=== PATIENT | male | born 1950 | race Caucasian/White ===

== ENCOUNTER → 2017-01-02 | Outpatient (CLI) | payer OTHER ==
[~2017-01-02] MED LIST: ASPI81TA28 PO; CALC500C3 PO; CEPH500C2 PO; INSDGIPEN SQ; LEVO75TA5 PO; LOSA50TA6 PO; METF-384 PO; METO100T14 PO; OMEP40CA41 PO; PEDI-19 PO; REPA1TAB42 PO; VIT B12 INJECTION INJ; [UNRECOGNIZED DRUG - OTHER] OPR
== END ==
LOC: C.LAB 22:23
DX: Z02.83 Encounter for blood-alcohol and blood-drug test (principal)

== ENCOUNTER 2017-03-13 22:40 | Emergency (ER) | payer OTHER ==
[~2017-03-13] VITALS: Ht 180.3 cm; Wt 93.5 kg
[2017-03-13 22:40] VITALS: TEMP 36.8; Ht 180.3 cm; Wt 93.5 kg
[2017-03-13] MEDS ORDERED: LIDO/EPINEPHRINE/SOD BICARB 20 ML VIAL INFIL ONE (22:47)
--- NOTE | 2017-03-13 23:05 | EMERGENCY ROOM VISIT NOTE ---
ED Visit Note First contact with patient: 22:43 I have personally evaluated this patient examined her and reviewed the pertinent labs and data. I have discussed the case with Faustina Vega, the physician appeals assistant and agree with the plan. Please refer to the PA note. This patient suffered a mechanical fall he has a large laceration to his left anterior arita there is no significant active bleeding he has bounding distal pulses my exam and has normal motor and sensation. The wound is relatively superficial but will require suturing given a large area. The patient says he is up-to-date on his tetanus booster. We will cover him with antibiotics and he should rest and elevate and try to stay off.
[2017-03-13] MEDS ORDERED: CEPHALEXIN 500MG HOME PACK 1 EA BTL PO ONE (23:45)
[2017-03-13] MEDS ORDERED: CEPH500C2 PO (23:53)
[2017-03-14 00:01] VITALS: BP 130/83; PULSE 69; O2SAT 97
[2017-03-14] MEDS ORDERED: OMEP40CA41 PO (00:10)
[2017-03-14] MEDS ORDERED: LEVO75TA5 PO (00:12)
[2017-03-14] MEDS ORDERED: METF-384 PO (00:12)
[2017-03-14] MEDS ORDERED: REPA1TAB42 PO (00:13)
[2017-03-14] MEDS ORDERED: METO100T14 PO (00:14)
[2017-03-14] MEDS ORDERED: LOSA50TA6 PO (00:15)
[2017-03-14] MEDS ORDERED: INSDGIPEN SQ (00:17)
[2017-03-14] MEDS ORDERED: CALC500C3 PO (00:18)
[2017-03-14] MEDS ORDERED: [UNRECOGNIZED DRUG - OTHER] OPR (00:20)
[2017-03-14] MEDS ORDERED: PEDI-19 PO (00:21)
[2017-03-14] MEDS ORDERED: VIT B12 INJECTION INJ (00:23)
[2017-03-14] MEDS ORDERED: ASPI81TA28 PO (00:23)
--- NOTE | 2017-03-14 03:33 | EMERGENCY ROOM VISIT NOTE ---
ED Visit Note First contact with patient: 22:43 CHIEF COMPLAINT: Left lower leg laceration HISTORY OF PRESENT ILLNESS: This 67-year-old patient presents to the emergency department with family after cutting the left lower leg when he had mechanical fall today. The bleeding has not stopped. Denies weakness or numbness of the extremity. patient has full range of motion of the extremity The patient rates the pain as mild and 2/10. The patient denies any other injuries. The patient' s tetanus shot is up to date. Patient denies any other injuries. He denies head injury, neck pain, back pain or any other medical complaints. REVIEW OF SYSTEMS: A 6 system review of systems was completed with positives and pertinent negatives listed in the HPI. ALLERGIES: Penicillin MEDICATIONS: Reviewed PMH: Paroxysmal A. fib not on anticoagulation, reviewed SOCIAL HISTORY: Occasional alcohol PHYSICAL EXAM: Vital Signs: Reviewed Nurse's notes, vital signs stable. GENERAL : Pleasant male, in no acute distress, well developed, well nourished. SKIN: There is a 12 cm long laceration on the left anterior arita. The edges gape apart with traction. There is no foreign material in the wound and it looks clean. There is bleeding. No deep structures such as tendons, bones, or significant blood vessels are seen in the base of the wound. Extension and flexion of the extremity is full and strong. Full range of motion of the extremity. Capillary refill less than 2 seconds. Normal sensation to light and sharp touch. EMERGENCY DEPARTMENT COURSE: I examined the patient. Using sterile technique the wound was cleansed with Betadine. 10 ml of 1% buffered lidocaine with epinephrine was used to anesthetize the patient. The area was sterilely draped. Once the patient was anesthetized, the wound was copiously irrigated under pressure with sterile saline. The wound was explored and there were no deep structures injured. The laceration was repaired using 30 simple interrupted 4-0 nylon sutures. The patient tolerated the procedure well. Hemostasis was achieved. The area was cleaned with sterile saline and dressed with bacitracin ointment and bandage. Brian wrap was applied for extra compression. Patient has a walker at home and was advised to use this and stay nonweightbearing until sutures are removed and cleared by the family care doctor. Patient has diabetes and this is an extensive laceration and I did opt to place him on Keflex. Patient was counseled on wound care and signs and symptoms of infection. The patient was discharged home in good condition. Differential diagnosis includes laceration, tendon injury, vascular injury and other etiologies were considered. DIAGNOSIS: Left lower leg laceration DISCHARGE INSTRUCTIONS & TREATMENT: As below Case reviewed with my attending Current/Historical Medications Scheduled Aspirin (Aspirin Ec), 81 MG PO DAILY Calcium Carbonate (Tums), 1,000 MG PO DAILY Cephalexin Monohydrate (Keflex), 500 MG PO QID Levothyroxine Sodium (Levothyroxine Sodium), 75 MCG PO DAILY Losartan Potassium (Cozaar), 50 MG PO DAILY Metformin Hcl (Glucophage), 1,000 MG PO BID Metoprolol Tartrate (Lopressor) (Lopressor), 100 MG PO DAILY Omeprazole (Prilosec), 40 MG PO DAILY Pediatric Multiple Vitamins W/ (Childrens Chewable Vitami), 2 TABS PO DAILY [Ileah Injection], 1 DOSE OPR [id number] [Vit B12 Injection], 1 DOSE INJ Q4WK Scheduled PRN Insulin Glargine (Lantus Solostar), 10-20 UNITS SQ DAILY PRN for HYPERGLYCEMIA Repaglinide (Prandin), 1 MG PO AC PRN for BLOOD SUGAR LEVEL Allergies Uncoded Allergies: PENICILLIN (Allergy, Severe, ANAPHYLAXIS, 03/14/17) Vital Signs Date Time Temp Pulse Resp B/P (MAP) Pulse Ox O2 Delivery O2 Flow Rate FiO2 03/14/17 00:01 69 18 130/83 97 Room Air 03/13/17 22:40 36.8 82 18 155/100 95 Room Air Departure Information Impression Primary Impression: Leg laceration Additional Impression: Fall Dispostion Home / Self-Care Condition GOOD Prescriptions Cephalexin Monohydrate (KEFLEX) 500 Mg Cap 500 MG PO QID for 9 Days, #36 CAP Prov: Teressa Vega .ROSALINDA 03/13/17 Forms HOME CARE DOCUMENTATION FORM, IMPORTANT VISIT INFORMATION Patient Instructions My [facility], ED Laceration All Additional Instructions Keep wound clean and dry. Do not allow any crusting or dried blood to accumulate on sutures. If this occurs, use a 1:1 solution of hydrogen peroxide/ water on a Q-tip to clean the wound. Use an antibiotic ointment for 3-4 days, then let wound dry. Put Brian wrap over bandage for compression and use walker stitches are removed. Do not have it so tight that you cannot feel your foot. Suture removal in 10-12 days. Keep covered when in sun until sutures removed then SPF 50 or higher for one year. Vitamin E oil if desired two weeks after suture removal for reduction of scar Cephalexin(Keflex) 500mg: Take one pill four times daily for 10 days. All antibiotics can cause diarrhea. If this occurs and you feel worse or it does not resolve in 1-2 days follow up with your doctor or return to the Emergency Department as this could be signs of serious underlying problems. Any medication can cause an allergic reaction, stop the pills immediately and return to the ER for rash, hives, breathing difficulties, or swelling. Acetaminophen(Tylenol) may be used for fever or pain. Use 1000mg every six hours as needed. Avoid using more than 3000mg in a 24 hour period. Rest and drink plenty of fluids. Continue current medications. Return to the ER for severe pain, fevers, spreading redness, or any worsening of your condition. Follow up with your primary physician within 2-3 days for a recheck of the current condition. Problem Qualifiers
== END 2017-03-14 00:14 | disposition home or self-care (01) ==
LOC: EDBD 22:40 → C.EDA 22:43
DX: S81.812A Laceration without foreign body, left lower leg, initial encounter (principal); W19.XXXA Unspecified fall, initial encounter; Z79.82 Long term (current) use of aspirin; E11.9 Type 2 diabetes mellitus without complications; Z79.84 Long term (current) use of oral hypoglycemic drugs

== ENCOUNTER 2017-03-26 10:46 | Emergency (ER) | payer OTHER ==
[~2017-03-26] VITALS: Ht 180.3 cm; Wt 87.8 kg
[~2017-03-26 10:46] MED LIST changes: -ASPI81TA28 PO; -CEPH500C2 PO; -INSDGIPEN SQ; -LEVO75TA5 PO; -LOSA50TA6 PO; -METF-384 PO; -METO100T14 PO; -OMEP40CA41 PO; -REPA1TAB42 PO; -VIT B12 INJECTION INJ; -[UNRECOGNIZED DRUG - OTHER] OPR
[2017-03-26 10:58] VITALS: BP 189/98; PULSE 77; TEMP 37; O2SAT 97; Ht 180.3 cm; Wt 87.8 kg
--- NOTE | 2017-03-26 16:41 | EMERGENCY ROOM VISIT NOTE ---
History First contact with patient: 11:13 Chief Complaint: SUTURE/STAPLE REMOVAL Stated Complaint: REMOVAL OF STITCHES History of Present Illness The patient is a 67 year old male who presents to the Emergency Room for evaluation of a left leg laceration that was repaired in the emergency department 13 days ago. The patient reports persistent drainage from the wound. He has been applying an antibiotic ointment, and has not noticed any increasing redness, swelling or pain. Review of Systems 6 system review was performed and was negative except for pertinent positives and negatives as indicated in history of present illness Past Medical/Surgical History Medical Problems: (1) Type 2 Diabetes Mellitus Without Complications Family History Unremarkable Social History Smoking Status: Former Smoker Marital Status: Occupation Status: retired Current/Historical Medications Scheduled Aspirin (Aspirin Ec), 81 MG PO DAILY Calcium Carbonate (Tums), 1,000 MG PO DAILY Levothyroxine Sodium (Levothyroxine Sodium), 75 MCG PO DAILY Losartan Potassium (Cozaar), 50 MG PO DAILY Metformin Hcl (Glucophage), 1,000 MG PO BID Metoprolol Tartrate (Lopressor) (Lopressor), 100 MG PO DAILY Omeprazole (Prilosec), 40 MG PO DAILY Pediatric Multiple Vitamins W/ (Childrens Chewable Vitami), 2 TABS PO DAILY [Ileah Injection], 1 DOSE OPR [id number] [Vit B12 Injection], 1 DOSE INJ Q4WK Scheduled PRN Insulin Glargine (Lantus Solostar), 10-20 UNITS SQ DAILY PRN for HYPERGLYCEMIA Repaglinide (Prandin), 1 MG PO AC PRN for BLOOD SUGAR LEVEL Physical Exam Vital Signs Date Time Temp Pulse Resp B/P (MAP) Pulse Ox O2 Delivery O2 Flow Rate FiO2 03/26/17 11:50 03/26/17 10:58 37.0 77 16 189/98 97 Room Air Pain Rating (0-10): 0 Physical Exam CONSTITUTIONAL: Healthy and well nourished. MUSCULOSKELETAL: Examination of the left lateral leg shows sutures and Steri- Strips over a wound that has mild serous sanguinous drainage at various sites of the wound. There is generalized erythema about the wound, but both the patient and reports that the erythema has improved. No purulent drainage is noted. No evidence for underlying fluctuance. INTEGUMENTARY: No rash or other significant dermatologic conditions noted. NEUROLOGIC: No focal neurologic deficits noted. Medical Decision & Procedures ED Course Patient history and physical exam were performed. Nurse's notes were reviewed. Vital signs were reviewed, showing a blood pressure 189/98. A portion of sutures were removed, however 11 sutures were left intact due to maceration, wound softness and skin tension. The patient was encouraged to keep a dry dressing on the wound, and either follow up with his PCP or return to the emergency department for reevaluation in 4 days. He was instructed to return to the emergency department sooner for any signs of increasing redness, swelling , pain, red streaks or fever. The patient was happy with plan of care, and voiced understanding of all discharge instructions, denying any pain at the time of discharge. Medical Decision Blood Pressure Screening Patient's blood pressure: Elevated blood pressure Impression Primary Impression: Laceration of left leg Departure Information Dispostion Home / Self-Care Forms HOME CARE DOCUMENTATION FORM, IMPORTANT VISIT INFORMATION Patient Instructions [facility] Additional Instructions Do not apply any antibiotic ointments to the wound. But the wound dry out when not active. Apply gauze when sleeping and when active. Return to the emergency department for recheck next Thursday, Thursday or Thursday. Return sooner for any concerns of infection. Problem Qualifiers Primary Impression: Laceration of left leg Encounter type: initial encounter Qualified Codes: S81.812A - Laceration without foreign body, left lower leg, initial encounter
[2017-03-30] MEDS ORDERED: OMEP40CA41 PO (00:10)
[2017-03-30] MEDS ORDERED: METF-384 PO (00:12)
[2017-03-30] MEDS ORDERED: LEVO75TA5 PO (00:12)
[2017-03-30] MEDS ORDERED: REPA1TAB40 PO (00:13)
[2017-03-30] MEDS ORDERED: METO100T14 PO (00:14)
[2017-03-30] MEDS ORDERED: LOSA50TA6 PO (00:15)
[2017-03-30] MEDS ORDERED: INSDGIPEN SQ (00:17)
[2017-03-30] MEDS ORDERED: [UNRECOGNIZED DRUG - OTHER] OPR (00:20)
[2017-03-30] MEDS ORDERED: ASPI81TA28 PO (00:23)
[2017-03-30] MEDS ORDERED: VIT B12 INJECTION INJ (00:23)
== END 2017-03-26 11:51 | disposition home or self-care (01) ==
LOC: C.EDB 10:48 → C.EDD 11:51
DX: S81.812D Laceration without foreign body, left lower leg, subsequent encounter (principal); X58.XXXD Exposure to other specified factors, subsequent encounter; E11.9 Type 2 diabetes mellitus without complications; Z87.891 Personal history of nicotine dependence; Z79.82 Long term (current) use of aspirin

== ENCOUNTER 2017-03-30 11:23 | Emergency (ER) | payer OTHER ==
[~2017-03-30] VITALS: Ht 180.3 cm; Wt 89.6 kg
[~2017-03-30 11:23] MED LIST changes: +ASPI81TA28 PO; +INSDGIPEN SQ; +LEVO75TA5 PO; +LOSA50TA6 PO; +METF-384 PO; +METO100T14 PO; +OMEP40CA41 PO; +REPA1TAB40 PO; +VIT B12 INJECTION INJ; +[UNRECOGNIZED DRUG - OTHER] OPR
[2017-03-30 11:30] VITALS: TEMP 36.7; Ht 180.3 cm; Wt 89.6 kg
--- NOTE | 2017-03-30 12:07 | EMERGENCY ROOM VISIT NOTE ---
History Report prepared by Giovanni: Graciela Bonilla Under the Supervision of: Dr. Regi Johnson M.D. First contact with patient: 11:57 Chief Complaint: WOUND INFECTION Stated Complaint: L LEG WOUND INFECTION Nursing Triage Summary: triage note: pt reports "my left leg is full of fluid or something, i fell mar 13 and got 29 stitches and they took out half the stitches on ." dressing to left lower leg dry and intact in triage and not removed at this time. History of Present Illness The patient is a 67 year old male who presents to the Emergency Room with complaints of persistent left leg pain that began several days ago. He currently rates his discomfort as a 2/10 in severity. The patient states that on March 13 he fell causing a left leg laceration. He states that last week he had 18 stitches removed, but states that he originally had 29 stitches placed. The patient states that today he noticed increased pain, and erythema around the area. He denies any fever. The patient states that he was on 10 days of Keflex when he first injured his leg. He reports a history of an allergy to penicillin. The patient reports a history of diabetes. Source of History: patient Onset: several days ago Position: leg (left) Symptom Intensity: 2/10 Timing: other (persistent) Associated Symptoms: No fevers Review of Systems See HPI for pertinent positives & negatives. A total of 10 systems reviewed and were otherwise negative. Past Medical & Surgical Medical Problems: (1) Type 2 Diabetes Mellitus Without Complications Social History Smoking Status: Never Smoker Marital Status: Housing Status: lives with significant other Occupation Status: retired Current/Historical Medications Scheduled Aspirin (Aspirin Ec), 81 MG PO DAILY Clindamycin Hcl (Cleocin), 300 MG PO QID Levothyroxine Sodium (Levothyroxine Sodium), 75 MCG PO DAILY Losartan Potassium (Cozaar), 50 MG PO DAILY Metformin Hcl (Glucophage), 1,000 MG PO BID Metoprolol Tartrate (Lopressor) (Lopressor), 100 MG PO DAILY Omeprazole (Prilosec), 40 MG PO DAILY Sulfa/Trimethoprim (Bactrim Ds 800MG/160MG), 1 TAB PO BID [Ileah Injection], 1 DOSE OPR 10 weeks [Vit B12 Injection], 1 DOSE INJ Q4WK Scheduled PRN Insulin Glargine (Lantus Solostar), 10-20 UNITS SQ DAILY PRN for HYPERGLYCEMIA Repaglinide (Prandin), 1 MG PO AC PRN for BLOOD SUGAR LEVEL Allergies Coded Allergies: Penicillins (Unverified Allergy, Severe, ANAPHYLAXIS, 03/30/17) Physical Exam Vital Signs Date Time Temp Pulse Resp B/P (MAP) Pulse Ox O2 Delivery O2 Flow Rate FiO2 03/30/17 13:40 61 18 180/83 99 Room Air 03/30/17 11:30 36.7 68 18 195/83 98 Room Air Physical Exam Vital signs reviewed. General: Well-appearing male, in no significant distress. HEENT: No scleral icterus, PERRLA, neck supple. Atraumatic. Cardiovascular: Regular rate and rhythm, no extra sounds. Pulmonary: Clear to auscultation bilaterally, normal work of breathing. Abdomen: Soft, nontender, nondistended, positive bowel sounds. Musculoskeletal: Atraumatic, no peripheral edema. Neurologic: Patient awake alert and oriented x 3, full strength in all 4 extremities. Cranial nerves 2 through 12 grossly intact. Skin: Large left anterior arita wound that is approximately 10 x 4 cm with sutures in place. Surrounding erythema extending from the ankle through the distal knee, no active drainage, minimal fluctuance to the lateral aspect of the wound. Otherwise warm and dry. Medical Decision & Procedures Laboratory Results 03/30/17 12:31 Red Blood Count 3.53, Mean Corpuscular Volume 86.7, Mean Corpuscular Hemoglobin 27.5, Mean Corpuscular Hemoglobin Concent 31.7, Mean Platelet Volume 9.0, Neutrophils (%) (Auto) 67.2, Lymphocytes (%) (Auto) 23.4, Monocytes (%) (Auto) 7.0, Eosinophils (%) (Auto) 1.7, Basophils (%) (Auto) 0.5, Neutrophils # (Auto) 4.26, Lymphocytes # (Auto) 1.48, Monocytes # (Auto) 0.44, Eosinophils # (Auto) 0.11, Basophils # (Auto) 0.03 03/30/17 12:31 Test 03/30/17 12:31 White Blood Count 6.33 K/uL (4.8-10.8) Red Blood Count 3.53 M/uL (4.7-6.1) Hemoglobin 9.7 g/dL (14.0-18.0) Hematocrit 30.6 % (42-52) Mean Corpuscular Volume 86.7 fL (80-100) Mean Corpuscular Hemoglobin 27.5 pg (25-34) Mean Corpuscular Hemoglobin Concent 31.7 g/dl (32-36) Platelet Count 296 K/uL (130-400) Mean Platelet Volume 9.0 fL (7.4-10.4) Neutrophils (%) (Auto) 67.2 % Lymphocytes (%) (Auto) 23.4 % Monocytes (%) (Auto) 7.0 % Eosinophils (%) (Auto) 1.7 % Basophils (%) (Auto) 0.5 % Neutrophils # (Auto) 4.26 K/uL (1.4-6.5) Lymphocytes # (Auto) 1.48 K/uL (1.2-3.4) Monocytes # (Auto) 0.44 K/uL (0.11-0.59) Eosinophils # (Auto) 0.11 K/uL (0-0.5) Basophils # (Auto) 0.03 K/uL (0-0.2) RDW Standard Deviation 49.7 fL (36.4-46.3) RDW Coefficient of Variation 15.7 % (11.5-14.5) Immature Granulocyte % (Auto) 0.2 % Immature Granulocyte # (Auto) 0.01 K/uL (0.00-0.02) Anion Gap 7.0 mmol/L (3-11) Est Creatinine Clear Calc Drug Dose 51.9 ml/min Estimated GFR () 56.9 Estimated GFR (Non- 49.1 BUN/Creatinine Ratio 16.8 (10-20) Calcium Level 8.9 mg/dl (8.5-10.1) Total Bilirubin 0.3 mg/dl (0.2-1) Direct Bilirubin < 0.1 mg/dl (0-0.2) Aspartate Amino Transf (AST/SGOT) 17 U/L (15-37) Alanine Aminotransferase (ALT/SGPT) 18 U/L (12-78) Alkaline Phosphatase 81 U/L (45-117) Total Protein 7.3 gm/dl (6.4-8.2) Albumin 3.5 gm/dl (3.4-5.0) Laboratory results per my review. Medications Administered Medications (Trade) Dose Ordered Sig/Liz Route Start Time Stop Time Status Last Admin Dose Admin Clindamycin Phosphate 900 mg/ Dextrose 106 ml @ 100 mls/hr ONE ONCE IV 03/30/17 12:15 03/30/17 13:18 DC 03/30/17 12:49 100 MLS/HR Trimethoprim/ Sulfamethoxazole (Septra Ds 800/ 160MG Tab) 1 tab NOW ONCE PO 03/30/17 12:15 03/30/17 12:19 DC 03/30/17 12:49 1 TAB ED Course 1200: Past medical records reviewed. The patient was evaluated in room A3. A complete history and physical examination was performed. 1215: Ordered Trimethoprim/Sulfamethoxazole 1 tab PO, Clindamycin Phosphate 900 mg/Dextrose 106 ml @ 100 mls/hr IV. 1320: I reevaluated the patient and he is resting comfortably. I discussed the exam findings with him and I discussed the treatment plan. He verbalized complete understanding and agreement. He is ready to go home shortly. 1355: Silvia Barreto PA-C removed the patients remaining sutures. Medical Decision Differential diagnosis: Etiologies such as cellulitis, abscess, MRSA infection, DVT, necrotizing fasciitis, dermatitis, drug eruption, as well as others were entertained. This patient was evaluated and appeared to be in no significant distress. Physical examination reveals a left lower extremity wound with sutures in place. There is a surrounding cellulitis. There is some possible fluctuance however it is unclear if this is hematoma versus fluid collection. Patient states this redness just appeared. Otherwise the wound was healing well. He was given IV clindamycin and oral Bactrim. Sutures were removed and a dressing was placed. The patient will be discharged on 1 week of Bactrim and clindamycin. He was given the option to follow with the PCP or to return to the ER for wound check tomorrow. As I am familiar with the appearance of the wound, he will return to the ER for repeat evaluation tomorrow. He has are aware of plan and agree. Medication Reconcilliation Current Medication List: was personally reviewed by me Blood Pressure Screening Patient's blood pressure: Elevated blood pressure Blood pressure disposition: Referred to PCP Impression Primary Impression: Traumatic open wound of left lower leg with infection Scribe Attestation The scribe's documentation has been prepared under my direction and personally reviewed by me in its entirety. I confirm that the note above accurately reflects all work, treatment, procedures, and medical decision making performed by me. Departure Information Dispostion Home / Self-Care Prescriptions Sulfa/Trimethoprim (Bactrim Ds 800MG/160MG) Tab 1 TAB PO BID, #13 TAB Prov: Regi Johnson M.D. 03/30/17 Clindamycin Hcl (CLEOCIN) 300 Mg Cap 300 MG PO QID for 7 Days, #27 CAP Prov: Regi Johnson M.D. 03/30/17 Referrals Kiran Ornelas M.D.(KAYLYN) (PCP) Forms HOME CARE DOCUMENTATION FORM, IMPORTANT VISIT INFORMATION, WORK / SCHOOL INSTRUCTIONS Patient Instructions My [facility] Additional Instructions Clindamycin 300 mg 4 times daily for 7 days, start this evening. Bactrim DS 1 tablet twice daily for 7 days, start before bed tonight. Tylenol 650 mg every 6 hours as needed for pain. Wash wound with warm water and mild soap, blot dry with a clean towel and apply dressing. Return to the ER tomorrow for reevaluation.
[2017-03-30] MEDS ORDERED: SULFAMETHOXAZOLE/TRIMETHOPRIM DS 800/160MG TAB PO ONE (12:15)
[2017-03-30] MEDS ORDERED: CLINDAMYCIN IV 900 MG in DEXTROSE 5% 100ML 100 ML IV ONE (12:15)
[2017-03-30 12:45] LABS: BASO % 0.5 %; BASO ABS # 0.03 K/uL (0-0.2); COMPLETE YES; EOS % 1.7 %; HEMATOCRIT 30.6 % (42-52); IG% 0.2 %; LYMPH % 23.4 %; LYMPH ABS # 1.48 K/uL (1.2-3.4); MEAN CELL VOLUME 86.7 fL (80-100); MEAN CORPUSCULAR HEMOGLOBIN 27.5 pg (25-34); MEAN CORPUSCULAR HGB CONC 31.7 g/dl (32-36); NEUT % 67.2 %; PLATELET COUNT 296 K/uL (130-400); RED BLOOD COUNT 3.53 M/uL (4.7-6.1); WHITE BLOOD COUNT 6.33 K/uL (4.8-10.8)
[2017-03-30 13:02] LABS: ALT/SGPT 18 U/L (12-78); BLOOD UREA NITROGEN 24 mg/dl (7-18); BUN/CREATININE RATIO 16.8 (10-20); CALCIUM 8.9 mg/dl (8.5-10.1); CARBON DIOXIDE 25 mmol/L (21-32); CHLORIDE 107 mmol/L (98-107); CREATININE 1.45 mg/dl (0.60-1.40); GLUCOSE 95 mg/dl (70-99); POTASSIUM 4.9 mmol/L (3.5-5.1); SODIUM 139 mmol/L (136-145)
[2017-03-30 13:04] LABS: ALKALINE PHOSPHATASE 81 U/L (45-117); AST/SGOT 17 U/L (15-37)
[2017-03-30] MEDS ORDERED: CLIN300C2 PO (13:26)
[2017-03-30] MEDS ORDERED: SULF800T23 PO (13:26)
[2017-03-30 13:40] VITALS: BP 180/83; PULSE 61; O2SAT 99
--- NOTE | 2017-03-30 13:57 | EMERGENCY ROOM VISIT NOTE ---
ED Visit Note I was asked by Dr. Johnson to remove the 11 sutures which remain in the patient's leg. The laceration was as described in her note. The 11 sutures were removed without difficulty. Crusts and loose skin were cleaned off of the wound. Bacitracin ointment and a bulky dressing were applied to the wound and wound care instructions were reviewed. Please see Dr. Johnson's note for further management.
[2017-03-31] MEDS ORDERED: AFLI2INJ OP (10:10)
== END 2017-03-30 14:07 | disposition home or self-care (01) ==
LOC: C.EDB 11:24 → C.EDA 14:07
DX: L03.116 Cellulitis of left lower limb (principal); S81.812D Laceration without foreign body, left lower leg, subsequent encounter; E11.628 Type 2 diabetes mellitus with other skin complications; W19.XXXD Unspecified fall, subsequent encounter; Z79.82 Long term (current) use of aspirin; Z79.84 Long term (current) use of oral hypoglycemic drugs

== ENCOUNTER 2017-03-31 09:46 | Emergency (ER) | payer OTHER ==
[~2017-03-31] VITALS: Ht 180.3 cm; Wt 89.3 kg
[~2017-03-31 09:46] MED LIST changes: +CLIN300C2 PO; +SULF800T23 PO
[2017-03-31 09:47] VITALS: TEMP 37; Ht 180.3 cm; Wt 89.3 kg
[2017-03-31] MEDS ORDERED: AFLI2INJ OP (10:10)
--- NOTE | 2017-03-31 10:24 | EMERGENCY ROOM VISIT NOTE ---
History Report prepared by Giovanni: Graciela Bonilla Under the Supervision of: Dr. Regi Johnson M.D. First contact with patient: 09:58 Chief Complaint: WOUND RECHECK Stated Complaint: RECHECK WOUND ON LEG Nursing Triage Summary: pt reports needs leg checked for infection sutures removed yesterday in left leg History of Present Illness The patient is a 67 year old male who presents to the Emergency Room with complaints of a persistent wound infection that began several days ago. The patient states that he injured his left leg on March 14. He states that he had 29 stitches placed on March 14 and states that he then had 18 stitches removed on March 26. The patient states that while in the emergency department yesterday he was placed on antibiotics for a left leg wound infection and had the remaining 11 stitches removed. The patient denies any pain or fever. The patient states that he is feeling well and feels the leg maybe improved from yesterday. He states that he has been taking his antibiotics as prescribed. Source of History: patient Onset: several days ago Position: leg Quality: other (wound infection) Timing: other (persistent) Associated Symptoms: No fevers Review of Systems See HPI for pertinent positives & negatives. A total of 6 systems reviewed and were otherwise negative. Past Medical & Surgical Medical Problems: (1) Type 2 Diabetes Mellitus Without Complications Family History No pertinent family history stated. Social History Smoking Status: Never Smoker Marital Status: Housing Status: lives with significant other Occupation Status: retired Current/Historical Medications Scheduled Aflibercept (Eylea), 1 DOSE OP Q4WK Aspirin (Aspirin Ec), 81 MG PO DAILY Clindamycin Hcl (Cleocin), 300 MG PO QID Levothyroxine Sodium (Levothyroxine Sodium), 75 MCG PO DAILY Losartan Potassium (Cozaar), 50 MG PO DAILY Metformin Hcl (Glucophage), 1,000 MG PO BID Metoprolol Tartrate (Lopressor) (Lopressor), 100 MG PO DAILY Omeprazole (Prilosec), 40 MG PO DAILY Sulfa/Trimethoprim (Bactrim Ds 800MG/160MG), 1 TAB PO BID [Vit B12 Injection], 1 DOSE INJ Q4WK Scheduled PRN Insulin Glargine (Lantus Solostar), 10-20 UNITS SQ DAILY PRN for HYPERGLYCEMIA Repaglinide (Prandin), 1 MG PO AC PRN for BLOOD SUGAR LEVEL Allergies Coded Allergies: Penicillins (Unverified Allergy, Severe, ANAPHYLAXIS, 03/30/17) Physical Exam Vital Signs Date Time Temp Pulse Resp B/P (MAP) Pulse Ox O2 Delivery O2 Flow Rate FiO2 03/31/17 10:48 69 18 147/75 95 03/31/17 09:47 37.0 72 18 208/92 97 Room Air Physical Exam Vital signs reviewed. General: Well-appearing male, in no significant distress. Musculoskeletal: Atraumatic, no peripheral edema. Neurologic: Patient awake alert and oriented x 3 Skin: Large left anterior arita wound that is approximately 10 x 4 cm with sutures in place. Surrounding erythema extending from the ankle through the distal knee, no active drainage, minimal fluctuance to the lateral aspect of the wound. Warm, dry, no rash Medical Decision & Procedures ED Course 1019: Past medical records reviewed. The patient was evaluated in room A9B. A complete history and physical examination was performed. I discussed the exam findings with him and I discussed the treatment plan. He verbalized complete understanding and agreement. He is ready to go home. Medical Decision Differential diagnosis: Etiologies such as cellulitis, abscess, MRSA infection, DVT, necrotizing fasciitis, dermatitis, drug eruption, as well as others were entertained. This pt was evaluated and appeared to be in no distress. Wound appears to be similar than yesterday, no streaking or spreading of erythema past marker line. Pt was advised to continue wound care and antibiotics as prescribed. He will f/u with PCP this week for BP and wound recheck. An appt was scheduled with Dr. Ornelas on 04/02 at 1255. Pt was agreeable and will return to the ED for worsening of symptoms or any medical concerns. Medication Reconcilliation Current Medication List: was personally reviewed by me Blood Pressure Screening Patient's blood pressure: Elevated blood pressure Blood pressure disposition: Referred to PCP Impression Primary Impression: Traumatic open wound of left lower leg with infection Additional Impression: Elevated blood pressure reading Scribe Attestation The scribe's documentation has been prepared under my direction and personally reviewed by me in its entirety. I confirm that the note above accurately reflects all work, treatment, procedures, and medical decision making performed by me. Departure Information Dispostion Home / Self-Care Referrals Kiran Ornelas M.D.([facility]) (PCP) Forms HOME CARE DOCUMENTATION FORM, IMPORTANT VISIT INFORMATION, WORK / SCHOOL INSTRUCTIONS Patient Instructions My [facility] [id number] Additional Instructions Diagnosis: wound infection Continue antibiotics as prescribed. Follow up with your doctor this week for reevaluation and blood pressure recheck. Case management has scheduled your appt for Return to the ED for worsening of symptoms or any medical concerns. Problem Qualifiers
[2017-03-31 10:48] VITALS: BP 147/75; PULSE 69; O2SAT 95
== END 2017-03-31 10:49 | disposition home or self-care (01) ==
LOC: C.EDB 09:47 → C.EDA 10:49
DX: T81.4XXA Infection following a procedure, initial encounter (principal); X58.XXXA Exposure to other specified factors, initial encounter; R03.0 Elevated blood-pressure reading, without diagnosis of hypertension; E11.9 Type 2 diabetes mellitus without complications; Z79.82 Long term (current) use of aspirin; Z79.84 Long term (current) use of oral hypoglycemic drugs; Z79.899 Other long term (current) drug therapy; Z88.0 Allergy status to penicillin